=== PATIENT | female | born 1975 | race Caucasian/White ===

== ENCOUNTER 2017-07-23 16:01 | Emergency (ER) | payer BC ==
[2017-07-23 16:06] VITALS: RESP 18
[2017-07-23] MEDS ORDERED: METOCLOPRAMIDE 5 MG/ML 2 ML VIAL IVP STA (16:25)
[2017-07-23] MEDS ORDERED: diphenhydrAMINE 50 MG/ML 1 ML VIAL IVP STA (16:25)
--- NOTE | 2017-07-23 16:58 | ED ---
General Adult HPI - General Chief complaint: Headache Stated complaint: Numbness in fingers, headache Time Seen by Provider: 07/23/17 16:16 Source: patient, RN notes reviewed Mode of arrival: ambulatory Limitations: no limitations - History of Present Illness Initial comments: 41-year-old female presents to the emergency department with a chief complaint back pain and headache. Patient states that she woke up and she just had this pain to her upper back. Patient states that this happened this afternoon after she woke up from sleeping. Patient states she then developed a mild headache so she was concerned. Patient states that when she took her blood pressure her heart rate was elevated as well so she thought that she should be seen. Patient denies any difficulty breathing with this. Patient states it's like a stabbing type pain. Patient denies any shortness of breath. Patient states she did have some bilateral finger numbness went the pain was very intense shows that her feet were more: Purple today but that has resolved. Patient states that now she is concerned about this back pain and headache. There's been no nausea vomiting with no vision changes. Patient states if she moves her back she notices increased pain she states that laying still also is uncomfortable. Patient denies any recent fever, chills, shortness of breath, chest pain, abdominal pain, nausea vomiting, numbness or tingling, dysuria or hematuria, constipation or diarrhea, visual changes, or any other current symptoms. - Related Data Home Medications Medication Instructions Recorded Confirmed Aspirin/Acetaminophen/Caffeine 1 tab PO DAILY PRN 07/23/17 07/23/17 [Excedrin Migraine Caplet] Allergies Allergy/AdvReac Type Severity Reaction Status Date / Time No Known Allergies Allergy Verified 07/23/17 16:33 Review of Systems ROS Statement: Those systems with pertinent positive or pertinent negative responses have been documented in the HPI. ROS Other: All systems not noted in ROS Statement are negative. Past Medical History Past Medical History: Asthma, Hyperlipidemia, Hypertension, Seizure Disorder Additional Past Medical History / Comment(s): PALPITAIONSN DIVEERTIUCLAR DISEASE , BULGING DISC L5-S1, HAD SEIZURE AGE 5 History of Any Multi-Drug Resistant Organisms: None Reported Past Surgical History: Appendectomy, Back Surgery, Cholecystectomy, Hysterectomy Additional Past Surgical History / Comment(s): LT OOPHERECTOMY, LUBAL LIGATION, HYSTERECTOMY, EGD, COLONOSCOPY Past Anesthesia/Blood Transfusion Reactions: No Reported Reaction Past Psychological History: No Psychological Hx Reported Smoking Status: Current every day smoker Past Alcohol Use History: None Reported Past Drug Use History: None Reported - Past Family History Father Family Medical History: AFIB, Diabetes Mellitus, Hyperlipidemia, Hypertension, Myocardial Infarction ([place]) Mother Family Medical History: Cancer, Diabetes Mellitus, Myocardial Infarction ([place]) Additional Family Medical History / Comment(s): PANCREATIC CANCER, General Exam - General Exam Comments Initial Comments: General: The patient is awake and alert, in no distress, and does not appear acutely ill. Eye: Pupils are equal, round and reactive to light, extra-ocular movements are intact; there is normal conjunctiva bilaterally. No signs of icterus. Ears, nose, mouth and throat: There are moist mucous membranes. Neck: The neck is supple, there is no tenderness. Cardiovascular: There is a regular rate and rhythm. No murmur, rub or gallop is appreciated. Respiratory: Lungs are clear to auscultation, respirations are non-labored, breath sounds are equal. No wheezes, stridor, rales, or rhonchi. Gastrointestinal: Soft, non-distended, non-tender abdomen without masses or organomegaly noted. There is no rebound or guarding present. No CVA tenderness. Bowel sounds are unremarkable. Back: There is no tenderness to palpation in the midline. There is no obvious deformity. No rashes noted. Musculoskeletal: Normal ROM, no tenderness, There is no pedal edema. There is no calf tenderness or swelling. Sensation intact. Pulses equal bilaterally 2+. Neurological: CN II-XII intact, There are no obvious motor or sensory deficits. Coordination appears grossly intact. Speech is normal. Skin: Skin is warm and dry and no rashes or lesions are noted. Psychiatric: Cooperative, appropriate mood & affect, normal judgment. Limitations: no limitations Course Vital Signs 07/23/17 07/23/17 16:02 16:32 Temperature 98.2 F Pulse Rate 94 96 Respiratory 18 18 Rate Blood Pressure 153/80 153/91 O2 Sat by Pulse 99 97 Oximetry Medical Decision Making - Medical Decision Making 41-year-old female presents emergency Department chief complaint of what appears to be a thoracic strain as well as headache. At this time patient is reassessed states she symmetrically better. Imaging was reviewed with her. We discussed close follow-up return parameters. We discussed patient most likely has a thoracic strain with headache associated with pain. We did discuss return parameters all questions. She states she understood she isn't with plan. She will be discharged. - Radiology Data Radiology results: report reviewed, image reviewed Disposition Clinical Impression: Headache, Strain of thoracic region Disposition: HOME SELF-CARE Condition: Stable Instructions: Acute Headache (ED), Thoracic Back Strain (ED) Additional Instructions: Please use medication as discussed. Please follow up with family doctor if symptoms have not improved over the next two days. Please return to the emergency room if your symptoms increase or worsen or for any other concerns. Referrals: Dania Singh DO [Primary Care Provider] - 1-2 days Time of Disposition: 18:32
--- NOTE | 2017-07-23 17:08 | XR ---
EXAMINATION TYPE: XR thoracic spine 2V DATE OF EXAM: 07/23/2017 CLINICAL HISTORY: Fall with mid back pain. TECHNIQUE: Frontal, lateral, and swimmer's view of thoracic spine are obtained. COMPARISON: None. FINDINGS: Thoracic spine show satisfactory alignment without evidence of acute fracture or dislocatio n. Vertebral body heights and disc space heights are preserved. Visualized ribs are unremarkable. Mild degenerative changes are seen of the thoracic spine. IMPRESSION: No acute fracture or dislocation is seen in the thoracic spine.
--- NOTE | 2017-07-23 17:09 | XR ---
EXAMINATION TYPE: XR chest 2V DATE OF EXAM: 07/23/2017 COMPARISON: 04/03/2016 HISTORY: Cough TECHNIQUE: Frontal and lateral views of the chest are obtained. FINDINGS: There is no focal air space opacity, pleural effusion, or pneumothorax seen. Right mediast inal prominence is secondary to rotation, similar to the prior exam. The cardiac silhouette size is w ithin normal limits. The osseous structures are intact. IMPRESSION: No acute cardiopulmonary process.
--- NOTE | 2017-07-23 18:24 | CT ---
EXAMINATION TYPE: CT brain wo con DATE OF EXAM: 07/23/2017 COMPARISON: NONE HISTORY: Pain Unenhanced CT of the brain was performed. The ventricles, basal cisterns and sulci overlying the cerebral convexities demonstrate a normal appe arance. There is no evidence for intracranial hemorrhage or sulcal effacement. No mass effects are seen. Osseous calvarium is intact. Right maxillary chronic sinusitis. If symptoms persist consider MRI as clinically warranted. IMPRESSION: 1. No acute intracranial process is seen at this time.
[2017-07-23] MEDS ORDERED: KETOROLAC 30 MG/ML 1 ML VIAL IVP STA (18:26)
[2017-07-23 19:16] VITALS: BP 134/88; PULSE 89; TEMP 98.3
== END 2017-07-23 19:00 | disposition home or self-care (01) ==
LOC: EC 16:01
DX: S29.012A Strain of muscle and tendon of back wall of thorax, initial encounter (principal); R51 Headache; R00.8 Other abnormalities of heart beat; R20.0 Anesthesia of skin; F17.200 Nicotine dependence, unspecified, uncomplicated; Z98.890 Other specified postprocedural states; X58.XXXA Exposure to other specified factors, initial encounter
CPT/HCPCS: 99284; 96374; 96375 ×2; 72070; 71020; 70450; J1200; J2765; J1885

== ENCOUNTER 2019-10-08 15:27 | Emergency (ER) | payer OTHER ==
[2019-10-08 15:35] VITALS: TEMP 97.7
[2019-10-08] MEDS ORDERED: SODIUM CHLORIDE 0.9% 500 ML 500 ML IV STA (16:46)
--- NOTE | 2019-10-08 17:31 | XR ---
EXAMINATION TYPE: XR chest 2V DATE OF EXAM: 10/08/2019 COMPARISON: 10/06/2018 HISTORY: Bradycardia TECHNIQUE: Frontal and lateral views of the chest are obtained. FINDINGS: There is no heart failure nor confluent pneumonic infiltrate. There is a left axillary pac emaker. Costophrenic angles are clear. Bony thorax is intact. Heart size normal. IMPRESSION: No active cardiopulmonary disease. No change.
[2019-10-08 17:51] LABS: Basophils # (A) 0.1 k/uL (0-0.2); Basophils % (A) 1 %; Eosinophils # (A) 0.2 k/uL (0-0.7); Eosinophils % (A) 3 %; HCT 44.9 % (34.0-46.0); HGB 15.3 gm/dL (11.4-16.0); Lymphocytes # (A) 1.5 k/uL (1.0-4.8); Lymphocytes % (A) 20 %; MCH 30.5 pg (25.0-35.0); MCHC 34.2 g/dL (31.0-37.0); MCV 89.3 fL (80.0-100.0); Mean Platelet Volume 6.7; Monocytes # (A) 0.3 k/uL (0-1.0); Monocytes % (A) 4 %; Neutrophils # (A) 5.5 k/uL (1.3-7.7); Neutrophils % (A) 71 %; Platelet Count 231 k/uL (150-450); RBC 5.03 m/uL (3.80-5.40); RDW 12.9 % (11.5-15.5); WBC 7.7 k/uL (3.8-10.6)
[2019-10-08 17:57] LABS: ALT 63 U/L (9-52); AST 77 U/L (14-36); African American GFR (CKD) >90 (>60 ml/min/1.73 sqM); Albumin 4.1 g/dL (3.5-5.0); Alkaline Phosphatase 67 U/L (38-126); Anion Gap 7 mmol/L; Blood Urea Nitrogen 18 mg/dL (7-17); Calcium 9.5 mg/dL (8.4-10.2); Carbon Dioxide 24 mmol/L (22-30); Chloride 108 mmol/L (98-107); Glucose 101 mg/dL (74-99); Magnesium 2.1 mg/dL (1.6-2.3); Sodium 139 mmol/L (137-145); Total Bilirubin 0.6 mg/dL (0.2-1.3); Total Protein 7.5 g/dL (6.3-8.2)
[2019-10-08 18:00] LABS: INR 0.9 (<1.2); Partial Thromboplastin Time 25.3 sec (22.0-30.0)
--- NOTE | 2019-10-08 18:57 | ED ---
Arrhythmia/Palpitations HPI - General Chief Complaint: Arrhythmia/Palpitations Stated Complaint: Chest Pain/SOB Source: patient, EMS Mode of arrival: EMS Limitations: no limitations - History of Present Illness Initial Comments: Patient is a 44 showed female with past medical history of SVT presents emergency Department with an episode of SVT. She states that she had an ablati on done last year by a EP doctor at [facility]. They also placed a defibrillator. Patient states that the fibular went off on her on Thursday. She reports that she felt somewhat lightheaded and it administered one shock. She called her garment folder office to inform them that it happened. They investigated her device. The patient was placed on sotalol. States that she just picked up the medication and started taking it yesterday. She has a plan to follow-up with her garment folder on Thursday. States that today she was driving around with her son. She states that she was in a vehicle waiting for him to come out of a store when she had sudden onset of palpitations. She called EMS w ho found her in SVT with a rate of 186. They did provide her with 6 of adenosine and she converted. She does arrive to the emergency department asymptomatic. She denies any recent illnesses. No chest pain. Denies any nausea or vomiting. No changes in her bowel or bladder habits. States the only new medication is sotalol which she is taking as directed. No history of ischemic disease. No fevers or chills. There are no other alleviating, precipitating or modifying factors - Related Data Home Medications Medication Instructions Recorded Confirmed Aspirin/Acetaminophen/Caffeine 2 tab PO Q6H PRN 10/08/19 10/08/19 [Excedrin Migraine Caplet] Sotalol [Betapace] 80 mg PO BID 10/08/19 10/08/19 Allergies Allergy/AdvReac Type Severity Reaction Status Date / Time No Known Allergies Allergy Verified 10/08/19 17:25 Review of Systems ROS Statement: Those systems with pertinent positive or pertinent negative responses have been documented in the HPI. ROS Other: All systems not noted in ROS Statement are negative. Past Medical History Past Medical History: Asthma, Hyperlipidemia, Hypertension, Seizure Disorder Additional Past Medical History / Comment(s): PALPITAIONSN DIVERTIUCLAR DISEASE, BULGING DISC L5-S1, HAD SEIZURE AGE 5 History of Any Multi-Drug Resistant Organisms: None Reported Past Surgical History: Ablation, Appendectomy, Back Surgery, Cholecystectomy, Hysterectomy Additional Past Surgical History / Comment(s): LT OOPHERECTOMY, TUBAL LIGATION, EGD, COLONOSCOPY, ablation for SVT 07/2018 at [facility] Past Anesthesia/Blood Transfusion Reactions: No Reported Reaction Past Psychological History: No Psychological Hx Reported Smoking Status: Current every day smoker Past Alcohol Use History: None Reported Past Drug Use History: None Reported - Past Family History Father Family Medical History: AFIB, Diabetes Mellitus, Hyperlipidemia, Hypertension, Myocardial Infarction ([place]) Mother Family Medical History: Cancer, Diabetes Mellitus, Myocardial Infarction ([place]) Additional Family Medical History / Comment(s): PANCREATIC CANCER, General Exam Limitations: no limitations Course Vital Signs 10/08/19 10/08/19 15:32 19:14 Temperature 97.7 F Pulse Rate 92 84 Respiratory 20 16 Rate Blood Pressure 144/95 134/78 O2 Sat by Pulse 97 100 Oximetry EKG Findings - EKG Comments: EKG Findings:: EKG demonstrates a sinus rhythm with a ventricular rate of 86. GA interval 182. QRS 86. QTC of 502. There are no acute ST segment elevations or depressions concerning for ischemic changes Medical Decision Making - Medical Decision Making L the patient is placed in room 1. A thorough history and physical exam is performed. I did perform a 12-lead EKG which demonstrates a normal sinus rhythm. We interrogated the patient's Eyeg[employer]ove device. Also completed laboratory studies. CBC is unremarkable. Quite elevations are normal. First troponin is negative. Magnesium is 2.1. Chest x-ray demonstrates no acute cardio pulmonary process. I did request urine sample over the patient did not provide one. We do get the report from the patient's device interrogation. It does report that the patient did receive a defibrillation earlier this week. She went into SVT with a rate of 213. Her device is set to administer shock for any heart rhythm above 200 bpm. States the patient has had multiple episodes of SVT however they have been nonsustained and less than 200 and therefore it has not administered. I informed the patient of this. I did recommend hospital observation. I offered admission for hospital or transfer to [facility] where her EP doctor is. Patient states that she feels better at this time. She like to follow up in office on Erik assured he has a scheduled appointment with her garment folder. I informed the patient that she has any new or worsening symptoms she should return to the emergency room. Patient was in agreement with the treatment plan she was discharged home in stable condition - Lab Data Result diagrams: 10/08/19 15:30 10/08/19 15:30 Lab Results 10/08/19 10/08/19 10/08/19 Range/Units 15:30 15:30 15:30 WBC 7.7 (3.8-10.6) k/uL RBC 5.03 (3.80-5.40) m/uL Hgb 15.3 (11.4-16.0) gm/dL Hct 44.9 (34.0-46.0) % MCV 89.3 (80.0-100.0) fL MCH 30.5 (25.0-35.0) pg MCHC 34.2 (31.0-37.0) g/dL RDW 12.9 (11.5-15.5) % Plt Count 231 (150-450) k/uL Neutrophils % 71 % Lymphocytes % 20 % Monocytes % 4 % Eosinophils % 3 % Basophils % 1 % Neutrophils # 5.5 (1.3-7.7) k/uL Lymphocytes # 1.5 (1.0-4.8) k/uL Monocytes # 0.3 (0-1.0) k/uL Eosinophils # 0.2 (0-0.7) k/uL Basophils # 0.1 (0-0.2) k/uL PT 10.0 (9.0-12.0) sec INR 0.9 (<1.2) APTT 25.3 (22.0-30.0) sec Sodium 139 (137-145) mmol/L Potassium 5.0 (3.5-5.1) mmol/L Chloride 108 H (98-107) mmol/L Carbon Dioxide 24 (22-30) mmol/L Anion Gap 7 mmol/L BUN 18 H (7-17) mg/dL Creatinine 0.85 (0.52-1.04) mg/dL Est GFR (CKD-EPI)AfAm >90 (>60 ml/min/1.73 sqM) Est GFR (CKD-EPI)NonAf 83 (>60 ml/min/1.73 sqM) Glucose 101 H (74-99) mg/dL Calcium 9.5 (8.4-10.2) mg/dL Magnesium 2.1 (1.6-2.3) mg/dL Total Bilirubin 0.6 (0.2-1.3) mg/dL AST 77 H (14-36) U/L ALT 63 H (9-52) U/L Alkaline Phosphatase 67 (38-126) U/L Troponin I (0.000-0.034) ng/mL Total Protein 7.5 (6.3-8.2) g/dL Albumin 4.1 (3.5-5.0) g/dL TSH 2.520 (0.465-4.680) mIU/L 10/08/19 Range/Units 15:30 WBC (3.8-10.6) k/uL RBC (3.80-5.40) m/uL Hgb (11.4-16.0) gm/dL Hct (34.0-46.0) % MCV (80.0-100.0) fL MCH (25.0-35.0) pg MCHC (31.0-37.0) g/dL RDW (11.5-15.5) % Plt Count (150-450) k/uL Neutrophils % % Lymphocytes % % Monocytes % % Eosinophils % % Basophils % % Neutrophils # (1.3-7.7) k/uL Lymphocytes # (1.0-4.8) k/uL Monocytes # (0-1.0) k/uL Eosinophils # (0-0.7) k/uL Basophils # (0-0.2) k/uL PT (9.0-12.0) sec INR (<1.2) APTT (22.0-30.0) sec Sodium (137-145) mmol/L Potassium (3.5-5.1) mmol/L Chloride (98-107) mmol/L Carbon Dioxide (22-30) mmol/L Anion Gap mmol/L BUN (7-17) mg/dL Creatinine (0.52-1.04) mg/dL Est GFR (CKD-EPI)AfAm (>60 ml/min/1.73 sqM) Est GFR (CKD-EPI)NonAf (>60 ml/min/1.73 sqM) Glucose (74-99) mg/dL Calcium (8.4-10.2) mg/dL Magnesium (1.6-2.3) mg/dL Total Bilirubin (0.2-1.3) mg/dL AST (14-36) U/L ALT (9-52) U/L Alkaline Phosphatase (38-126) U/L Troponin I <0.012 (0.000-0.034) ng/mL Total Protein (6.3-8.2) g/dL Albumin (3.5-5.0) g/dL TSH (0.465-4.680) mIU/L Disposition Clinical Impression: Supraventricular tachycardia Disposition: HOME SELF-CARE Condition: Stable Instructions (If sedation given, give patient instructions): Supraventricular Tachycardia (ED) Additional Instructions: Please see your garment folder on Thursday at your scheduled appointment. Please take the report from your device interrogation. Return to the emergency department for any new or worsening symptoms Is patient prescribed a controlled substance at d/c from ED?: No Referrals: Dania Singh DO [Primary Care Provider] - 1-2 days Time of Disposition: 18:56
[2019-10-08 19:15] VITALS: BP 134/78; PULSE 84; RESP 16
== END 2019-10-08 19:30 | disposition home or self-care (01) ==
LOC: EC 15:27
DX: I47.1 Supraventricular tachycardia (principal); I10 Essential (primary) hypertension; F17.200 Nicotine dependence, unspecified, uncomplicated; Z79.899 Other long term (current) drug therapy
CPT/HCPCS: 36415; 71046; 80053; 83735; 84443; 84484; 85025; 85610; 85730; 93005; 96360; 96361; 99285